=== PATIENT | female | born 1950 | race Caucasian/White ===

== ENCOUNTER 2020-01-09 22:17 | Emergency (ER) | payer MEDICARE, SELFPAY ==
[~2020-01-09] VITALS: Ht 154.9 cm; Wt 57.0 kg
--- NOTE | 2020-01-09 22:49 | NUR ---
PT TO ED WITH RIGHT EAR AND JAW PAIN X5 DAYS, HAS BEEN CONTROLLING PAIN WITH TYLENOL, TOOK TYELONL X2 HRS AGO WITHOUT RELIEF. PT DENIES PRESSURE OR DRAINAGE FROM EAR. DENIES DIFFICULTY SWALLOWING OR SPEAKING. PT CONNECTED TO MONITORING, CALL LIGHT WITHIN REACH, ALL SAFETY MEASURES IN PLACE.
[2020-01-09] MEDS ORDERED: HYDROcodone/APAP 5/325 TABLET PO STA (23:16)
[2020-01-09] MEDS ORDERED: PENICILLIN VK 500MG TABLET PO STA (23:16)
[2020-01-09] MEDS ORDERED: ONDANSETRON ODT 4 MG ONE (23:19)
[2020-01-09] MEDS ORDERED: HYDROcodone/APAP 5/325 TABLET ONE (23:20)
[2020-01-09] MEDS ORDERED: PENICILLIN VK 500MG TABLET ONE (23:20)
--- NOTE | 2020-01-09 23:24 | NUR ---
PT MEDICATED PER MAR. UPDATED ON POC, MONITORING IN PLACE, CALL LIGHT WITHIN REACH.
[2020-01-09] MEDS ORDERED: ONDANSETRON ODT 4 MG PO ONE (23:30)
[2020-01-10 00:03] VITALS: BP 166/68
== END 2020-01-10 00:05 | disposition home or self-care (01) ==
LOC: ED 23:40
DX: K02.9 Dental caries, unspecified (principal)
CPT/HCPCS: 99284; Q0162